=== PATIENT | male | born 1960 | race Caucasian/White ===

== ENCOUNTER 2017-05-21 20:54 | Emergency (ER) | payer OTHER ==
[~2017-05-21] VITALS: Ht 165.1 cm; Wt 64.9 kg
[~2017-05-21 20:54] MED LIST: MOBIC15 MG PO
[2017-05-22 01:02] VITALS: BP 0/0
== END 2017-05-22 01:05 | disposition left against medical advice (07) ==
LOC: ER 20:54
DX: S22.000A Wedge compression fracture of unspecified thoracic vertebra, initial encounter for closed fracture (principal); M54.5 Low back pain; G89.29 Other chronic pain; J44.9 Chronic obstructive pulmonary disease, unspecified; Z98.890 Other specified postprocedural states; F17.200 Nicotine dependence, unspecified, uncomplicated; F10.99 Alcohol use, unspecified with unspecified alcohol-induced disorder; F12.10 Cannabis abuse, uncomplicated; X58.XXXA Exposure to other specified factors, initial encounter; Y93.89 Activity, other specified; Y92.89 Other specified places as the place of occurrence of the external cause; Y99.8 Other external cause status

== ENCOUNTER 2018-12-28 09:31 | Emergency (ER) | payer OTHER ==
[~2018-12-28] VITALS: Ht 165.1 cm; Wt 67.6 kg
[2018-12-28] MEDS ORDERED: MOBIC7.5 MG PO (11:04)
[2018-12-28 12:11] VITALS: BP 112/73
== END 2018-12-28 12:12 | disposition home or self-care (01) ==
LOC: ER 09:31
DX: M79.601 Pain in right arm (principal); M79.602 Pain in left arm; M54.2 Cervicalgia; F17.210 Nicotine dependence, cigarettes, uncomplicated; G89.29 Other chronic pain; M54.9 Dorsalgia, unspecified